=== PATIENT | female | born 1940 | race Caucasian/White ===

== ENCOUNTER 2023-07-31 08:02 | Outpatient (RCR) | payer MEDICARE, SELFPAY ==
--- NOTE | ~2023-07-31 | XR_ITS ---
EXAMINATION: XR TIBIA AND FIBULA, LEFT CLINICAL INFORMATION: Nonhealing wound COMPARISON: None available. TECHNIQUE: AP and lateral views of the left tibia and fibula were obtained. FINDINGS: No acute fracture or dislocation. Joint spaces are maintained. Soft tissue swelling in the calf with irregularity of the skin along the dorsal aspect which may correspond to known ulceration. No cortical erosion, focal osteopenia or periosteal reaction to favor osteomyelitis however MRI would be more sensitive for evaluation. XR/XR tibia fibula LT 2V IMPRESSION: 1. Soft tissue swelling in the calf with irregularity of the skin along the dorsal aspect which may correspond to known ulceration. No cortical erosion, focal osteopenia or periosteal reaction to favor osteomyelitis however MRI would be more sensitive for evaluation.
== END 2023-10-25 16:02 | disposition home or self-care (01) ==
LOC: HO.WCC 08:02
PROVIDERS: PCP Internal Medicine; Visit Provider Surgery
DX: L97.822 Non-pressure chronic ulcer of other part of left lower leg with fat layer exposed (principal); I87.2 Venous insufficiency (chronic) (peripheral); I10 Essential (primary) hypertension; Z79.899 Other long term (current) drug therapy
CPT/HCPCS: 10060; 11042; 29580; 73590; 87070; 87077; 87186; 87205; 99212

== ENCOUNTER 2023-08-28 14:23 | Outpatient (REF) | payer MEDICARE, SELFPAY ==
--- NOTE | ~2023-08-28 | US_ITS ---
EXAMINATION: US EXTREMITY, NONVASCULAR CLINICAL INFORMATION: Nonhealing wound with question of foreign body. COMPARISON: None available. TECHNIQUE: High-frequency linear ultrasound transducer was used to examine the left mid randall in the area of the patient's wound. FINDINGS: No echogenic or shadowing foreign body is seen with ultrasound. No drainable fluid collections are seen. Soft tissue swelling and edema is present. US/US extremity nonvascular IMPRESSION: No foreign body is seen.
== END 2023-08-28 14:24 | disposition home or self-care (01) ==
LOC: HO.US 14:23
PROVIDERS: PCP Internal Medicine; Visit Provider Physician Assistant
DX: L97.822 Non-pressure chronic ulcer of other part of left lower leg with fat layer exposed (principal)
CPT/HCPCS: 76882